=== PATIENT | male | born 1990 | race Two or more races ===

== ENCOUNTER 2022-10-22 12:24 | Outpatient (CLI) | payer OTHER | END 2022-10-22 15:02 | disposition home or self-care (01) | LOC: EDBD 12:24 → LAB 12:24 | PROVIDERS: ATTEND Obstetrics & Gynecology | DX: Z20.818 Contact with and (suspected) exposure to other bacterial communicable diseases (principal); Z20.828 Contact with and (suspected) exposure to other viral communicable diseases ==